=== PATIENT | female | born 1940 | race Caucasian/White ===

== ENCOUNTER 2021-05-21 21:02 | Inpatient (IN) | payer MEDICARE ==
[~2021-05-21] VITALS: Ht 165.1 cm; Wt 83.6 kg
[2021-05-21] MEDS ORDERED: SODIUM CHLORIDE 0.9% 1000ML 1,000 ML IV ONE (21:15)
[2021-05-21 21:32] LABS: BASOPHILS # (AUTO) 0.1 (0.0-0.1); BASOPHILS % 0.9 % (0.0-1.0); EOSINOPHILS # (AUTO) 0.3 (0.0-0.4); EOSINOPHILS % 3.1 % (0.0-6.0); HEMOGLOBIN 10.9 g/dL (12.0-16.0); LYMPHOCYTES # (AUTO) 0.9 (1.0-3.2); LYMPHOCYTES % 11.3 % (18.0-39.1); MEAN CORPUSCULAR HEMOGLOBIN 29.3 pg (28-32); MEAN CORPUSCULAR VOLUME 88.7 fL (81-99); MONOCYTES % 11.7 % (4.4-11.3); NEUTROPHILS # (AUTO) 5.9 (2.1-6.9); NEUTROPHILS % 72.5 % (38.7-80.0); PLATELET COUNT 392 x10e3/uL (140-360); RED BLOOD COUNT 3.72 x10e6/uL (3.6-5.1); RED CELL DISTRIBUTION WIDTH 12.9 % (11.7-14.4)
[2021-05-21 21:49] LABS: AMYLASE 55 U/L (25-125); LIPASE 51 U/L (8-78)
[2021-05-21 21:50] LABS: ALBUMIN 3.8 g/dL (3.5-5.0); ALBUMIN/GLOBULIN RATIO 1.6 (0.8-2.0); ANION GAP 16.9 mmol/L (8-16); CALCIUM 9.5 mg/dL (8.4-10.2); CREATININE, SERUM 0.82 mg/dL (0.57-1.11)
[2021-05-21 21:52] LABS: POTASSIUM 2.9 mmol/L (3.5-5.1)
[2021-05-21] MEDS ORDERED: SODIUM CHLORIDE 0.9% 50ML 50 ML ONE (22:08)
[2021-05-21] MEDS ORDERED: IOPAMIDOL 370 MG/ML 200 ML INFUS..BTL INJ ONE (22:08)
[2021-05-21] MEDS ORDERED: Morphine 2mg Syringe 2 MG/ML SYR IV ONE (22:30)
[2021-05-21 22:47] LABS: CLARITY,URINE CLEAR (CLEAR); COLOR,URINE YELLOW (YELLOW); KETONES,URINE NEGATIVE (NEGATIVE); LEUKOCYTE ESTERASE ,URINE NEGATIVE (NEGATIVE); NITRITE,URINE NEGATIVE (NEGATIVE); PROTEIN,URINE DIPSTICK NEGATIVE (NEGATIVE); URINE UROBILINOGEN 0.2 mg/dL (0.2 - 1)
[2021-05-21 22:51] LABS: BACTERIA,URINE FEW /HPF; EPITHELIAL CELLS,URINE FEW /LPF; RBC,URINE 0-5 /HPF (0-5); WBC,URINE (MAN) 0-5 /HPF (0-5)
[2021-05-22] VITALS (10 sets, daily range): BP systolic 135–157; BP diastolic 52–68
[2021-05-22] MEDS: ONDANSETRON HCL INJ 2MG/ML 2ML 2 MG/ML VIAL IV PRN ×3 (00:21→21:38)
[2021-05-22] MEDS: KCL 20MEQ/.9 SOD CHL 1,000 ML IV SCH ×4 (00:25→23:33)
[2021-05-22] MEDS: Morphine 2mg Syringe 2 MG/ML SYR IV PRN ×3 (02:36→21:38)
[2021-05-22] MEDS ORDERED: ACETAMINOPHEN 325 MG TAB PO PRN (07:15)
[2021-05-22 08:10] LABS: BASOPHILS # (AUTO) 0.1 (0.0-0.1); BASOPHILS % 1.4 % (0.0-1.0); EOSINOPHILS # (AUTO) 0.3 (0.0-0.4); EOSINOPHILS % 5.3 % (0.0-6.0); HEMATOCRIT 30.9 % (34.2-44.1); LYMPHOCYTES # (AUTO) 0.8 (1.0-3.2); LYMPHOCYTES % 15.3 % (18.0-39.1); MEAN CORPUSCULAR HEMOGLOBIN 29.7 pg (28-32); MEAN CORPUSCULAR HGB CONC 32.4 g/dL (31-35); MONOCYTES # (AUTO) 0.7 (0.2-0.8); MONOCYTES % 14.3 % (4.4-11.3); NEUTROPHILS # (AUTO) 3.2 (2.1-6.9); NEUTROPHILS % 63.1 % (38.7-80.0); PLATELET COUNT 320 x10e3/uL (140-360); RED BLOOD COUNT 3.37 x10e6/uL (3.6-5.1)
[2021-05-22 08:13] LABS: MEAN CORPUSCULAR VOLUME 91.7 fL (81-99)
[2021-05-22 08:45] LABS: ALBUMIN 3.2 g/dL (3.5-5.0); ALBUMIN/GLOBULIN RATIO 1.2 (0.8-2.0); ANION GAP 14.1 mmol/L (8-16); CALCIUM 8.4 mg/dL (8.4-10.2); CREATININE, SERUM 0.7 mg/dL (0.57-1.11); POTASSIUM 3.1 mmol/L (3.5-5.1)
[2021-05-22] MEDS: METRONIDAZOLE 500MG/NS 100ML 100 ML IV SCH ×3 (09:17→21:37)
[2021-05-22] MEDS ORDERED: SIMVASTATIN40 MG PO (14:29)
[2021-05-22] MEDS: ENOXAPARIN SOD INJ 40 MG/0.4 ML SYR SC SCH (16:46)
[2021-05-23] VITALS (7 sets, daily range): BP systolic 138–176; BP diastolic 57–67
[2021-05-23] MEDS ORDERED: METHOCARBAMOL500 MG PO (01:17)
[2021-05-23] MEDS ORDERED: AMLODIPINE BESYL5 MG PO (01:17)
[2021-05-23] MEDS ORDERED: LEVOTHYROXINE50 MCG PO (01:17)
[2021-05-23] MEDS ORDERED: CELEXA20 MG PO (01:17)
[2021-05-23] MEDS ORDERED: OMEPRAZOLE40 MG PO (01:17)
[2021-05-23] MEDS ORDERED: SIMVASTATIN40 MG PO (01:17)
[2021-05-23] MEDS ORDERED: METOPROLOL TART25 MG PO (01:17)
[2021-05-23] MEDS ORDERED: ESTRADIOL1 MG PO (01:17)
[2021-05-23] MEDS ORDERED: HYDROCHLOROTH12.5 MG PO (01:17)
[2021-05-23] MEDS ORDERED: ASPIRIN81 MG PO (01:17)
[2021-05-23] MEDS: METRONIDAZOLE 500MG/NS 100ML 100 ML IV SCH ×3 (05:05→21:51)
[2021-05-23] MEDS: ONDANSETRON HCL INJ 2MG/ML 2ML 2 MG/ML VIAL IV PRN (07:43)
[2021-05-23] MEDS: Morphine 2mg Syringe 2 MG/ML SYR IV PRN ×2 (07:43→20:26)
[2021-05-23] MEDS: KCL 20MEQ/.9 SOD CHL 1,000 ML IV SCH ×2 (07:43→16:07)
[2021-05-23 08:18] LABS: BASOPHILS # (AUTO) 0.1 (0.0-0.1); BASOPHILS % 1.6 % (0.0-1.0); EOSINOPHILS # (AUTO) 0.4 (0.0-0.4); EOSINOPHILS % 8.8 % (0.0-6.0); HEMATOCRIT 33.8 % (34.2-44.1); HEMOGLOBIN 10.2 g/dL (12.0-16.0); LYMPHOCYTES # (AUTO) 0.7 (1.0-3.2); LYMPHOCYTES % 13.1 % (18.0-39.1); MEAN CORPUSCULAR HEMOGLOBIN 29.4 pg (28-32); MEAN CORPUSCULAR HGB CONC 30.2 g/dL (31-35); MEAN CORPUSCULAR VOLUME 97.4 fL (81-99); MONOCYTES # (AUTO) 0.5 (0.2-0.8); MONOCYTES % 10.8 % (4.4-11.3); NEUTROPHILS # (AUTO) 3.2 (2.1-6.9); NEUTROPHILS % 65.1 % (38.7-80.0); PLATELET COUNT 311 x10e3/uL (140-360); RED BLOOD COUNT 3.47 x10e6/uL (3.6-5.1); RED CELL DISTRIBUTION WIDTH 13.5 % (11.7-14.4)
[2021-05-23 08:34] LABS: ANION GAP 12.8 mmol/L (8-16); BLOOD UREA NITROGEN < 5 mg/dL (7-26); CALCIUM 8.3 mg/dL (8.4-10.2); CARBON DIOXIDE 22 mmol/L (22-29); CHLORIDE 104 mmol/L (98-107); CREATININE, SERUM 0.62 mg/dL (0.57-1.11); EST GLOMERULAR FILTRATION RATE 92 ML/MIN (60-); GLUCOSE 94 mg/dL (74-118); POTASSIUM 3.8 mmol/L (3.5-5.1); SODIUM 135 mmol/L (136-145)
[2021-05-23 08:41] LABS: BUN/CREATININE RATIO 8 (6-25)
[2021-05-23] MEDS: METOPROLOL TARTRATE 25 MG TAB PO SCH ×2 (11:53→16:07)
[2021-05-23] MEDS: AMLODIPINE BESYLATE 5 MG TAB PO SCH (11:54)
[2021-05-23] MEDS: PROMETHAZINE 12.5MG/ NACL 0.9% 12.5 MG/50 ML BAG IV PRN ×2 (11:55→22:31)
[2021-05-23] MEDS: ENOXAPARIN SOD INJ 40 MG/0.4 ML SYR SC SCH (16:07)
[2021-05-24] VITALS (7 sets, daily range): BP systolic 129–164; BP diastolic 55–70
[2021-05-24] MEDS: KCL 20MEQ/.9 SOD CHL 1,000 ML IV SCH ×3 (03:00→15:30)
[2021-05-24] MEDS: ONDANSETRON HCL INJ 2MG/ML 2ML 2 MG/ML VIAL IV PRN ×3 (03:06→21:19)
[2021-05-24] MEDS: LEVOTHYROXINE SODIUM 25 MCG TABLET PO SCH (06:25)
[2021-05-24] MEDS: METRONIDAZOLE 500MG/NS 100ML 100 ML IV SCH ×3 (06:25→22:12)
[2021-05-24] MEDS: PROMETHAZINE 12.5MG/ NACL 0.9% 12.5 MG/50 ML BAG IV PRN (07:24)
[2021-05-24] MEDS: METOPROLOL TARTRATE 25 MG TAB PO SCH ×2 (09:00→18:04)
[2021-05-24] MEDS: AMLODIPINE BESYLATE 5 MG TAB PO SCH (09:00)
[2021-05-24] MEDS ORDERED: PROPOFOL IV EMULSION 10 MG/ML 20 ML VIAL ONE (12:45)
[2021-05-24] MEDS ORDERED: LIDOCAINE HCL 2% LOCAL INJ 5 ML SDV VIAL INJ ONE (12:45)
[2021-05-24] MEDS ORDERED: FENTANYL CITRATE/PF 100MCG/2 ML INJ ONE (13:11)
[2021-05-24] MEDS: Morphine 2mg Syringe 2 MG/ML SYR IV PRN (15:47)
[2021-05-24] MEDS: ENOXAPARIN SOD INJ 40 MG/0.4 ML SYR SC SCH (18:04)
[2021-05-25] VITALS (8 sets, daily range): BP systolic 147–175; BP diastolic 64–81
[2021-05-25] MEDS: KCL 20MEQ/.9 SOD CHL 1,000 ML IV SCH ×2 (00:29→12:40)
[2021-05-25] MEDS: ONDANSETRON HCL INJ 2MG/ML 2ML 2 MG/ML VIAL IV PRN ×2 (05:36→21:23)
[2021-05-25] MEDS: METRONIDAZOLE 500MG/NS 100ML 100 ML IV SCH ×3 (06:00→22:00)
[2021-05-25] MEDS: LEVOTHYROXINE SODIUM 25 MCG TABLET PO SCH (06:00)
[2021-05-25] MEDS ORDERED: SODIUM CHLORIDE 0.9% 250ML 250 ML ONE (07:43)
[2021-05-25] MEDS ORDERED: ONDANSETRON HCL 4 MG ORAL DISINTEGRATING TAB PO SCH (08:00)
[2021-05-25 08:19] LABS: BASOPHILS # (AUTO) 0.1 (0.0-0.1); BASOPHILS % 1.2 % (0.0-1.0); EOSINOPHILS # (AUTO) 0.5 (0.0-0.4); EOSINOPHILS % 7.8 % (0.0-6.0); HEMATOCRIT 32.8 % (34.2-44.1); HEMOGLOBIN 10.3 g/dL (12.0-16.0); LYMPHOCYTES # (AUTO) 0.7 (1.0-3.2); LYMPHOCYTES % 10.1 % (18.0-39.1); MEAN CORPUSCULAR HEMOGLOBIN 29.4 pg (28-32); MEAN CORPUSCULAR HGB CONC 31.4 g/dL (31-35); MEAN CORPUSCULAR VOLUME 93.7 fL (81-99); MONOCYTES # (AUTO) 0.5 (0.2-0.8); MONOCYTES % 8.4 % (4.4-11.3); NEUTROPHILS # (AUTO) 4.6 (2.1-6.9); NEUTROPHILS % 72.2 % (38.7-80.0); PLATELET COUNT 307 x10e3/uL (140-360); RED CELL DISTRIBUTION WIDTH 13.5 % (11.7-14.4)
[2021-05-25 08:37] LABS: ANION GAP 13.6 mmol/L (8-16); BLOOD UREA NITROGEN < 5 mg/dL (7-26); CALCIUM 8.8 mg/dL (8.4-10.2); CARBON DIOXIDE 23 mmol/L (22-29); CHLORIDE 104 mmol/L (98-107); CREATININE, SERUM 0.64 mg/dL (0.57-1.11); EST GLOMERULAR FILTRATION RATE 89 ML/MIN (60-); GLUCOSE 93 mg/dL (74-118); POTASSIUM 4.6 mmol/L (3.5-5.1); SODIUM 136 mmol/L (136-145)
[2021-05-25] MEDS: METOPROLOL TARTRATE 25 MG TAB PO SCH ×2 (08:37→16:30)
[2021-05-25] MEDS: AMLODIPINE BESYLATE 5 MG TAB PO SCH (08:37)
[2021-05-25 08:53] LABS: BUN/CREATININE RATIO 8 (6-25)
[2021-05-25 10:17] LABS: MAGNESIUM 1.9 MG/DL (1.3-2.1); PHOSPHORUS 2.6 MG/DL (2.3-4.7)
[2021-05-25] MEDS: ONDANSETRON HCL 4 MG ORAL DISINTEGRATING TAB PO SCH ×2 (11:26→15:30)
[2021-05-25] MEDS: CALCIUM CARBONATE 500 MG CHEWABLE TABS PO SCH ×2 (12:21→22:00)
[2021-05-25] MEDS: PROMETHAZINE 12.5MG/ NACL 0.9% 12.5 MG/50 ML BAG IV PRN (12:40)
[2021-05-25] MEDS: ENOXAPARIN SOD INJ 40 MG/0.4 ML SYR SC SCH (15:30)
[2021-05-25] MEDS: Morphine 2mg Syringe 2 MG/ML SYR IV PRN ×2 (17:20→23:30)
[2021-05-26] VITALS: BP 155/78
[2021-05-26] MEDS: KCL 20MEQ/.9 SOD CHL 1,000 ML IV SCH (00:11)
[2021-05-26 04:00] VITALS: BP 170/69
[2021-05-26] MEDS: ONDANSETRON HCL INJ 2MG/ML 2ML 2 MG/ML VIAL IV PRN (05:10)
[2021-05-26] MEDS: Morphine 2mg Syringe 2 MG/ML SYR IV PRN (05:40)
[2021-05-26] MEDS: METRONIDAZOLE 500MG/NS 100ML 100 ML IV SCH (06:03)
[2021-05-26] MEDS: CALCIUM CARBONATE 500 MG CHEWABLE TABS PO SCH (06:03)
[2021-05-26] MEDS: LEVOTHYROXINE SODIUM 25 MCG TABLET PO SCH (06:03)
[2021-05-26] MEDS: ONDANSETRON HCL 4 MG ORAL DISINTEGRATING TAB PO SCH (07:30)
[2021-05-26] MEDS ORDERED: Calcium Carbonate 500MG Chew PO (07:36)
[2021-05-26] MEDS ORDERED: ONDANSETRON ODT4 MG PO (07:36)
[2021-05-26] MEDS ORDERED: SENNA LAX8.6 MG PO (07:36)
[2021-05-26] MEDS ORDERED: PROBIOTIC & AC1 EACH PO (07:36)
[2021-05-26] MEDS ORDERED: METRONIDAZOLE250 MG PO (07:36)
[2021-05-26] MEDS ORDERED: PANTOPRAZOLE SO40 MG PO (07:36)
[2021-05-26] MEDS ORDERED: METOPROLOL TART50 MG PO (07:36)
[2021-05-26 08:16] VITALS: BP 152/56
[2021-05-26 08:37] VITALS: BP 152/56
[2021-05-26] MEDS: AMLODIPINE BESYLATE 5 MG TAB PO SCH (08:57)
[2021-05-26] MEDS ORDERED: METOPROLOL TARTRATE 50 MG TAB PO SCH (09:00)
== END 2021-05-26 10:24 | disposition home or self-care (01) | DRG 392 ==
LOC: ER 21:25 → ERHOLD 23:20 → MED/SURG3 05-22 00:58 → OBSVTOIN 05-23 09:19
PROVIDERS: ADMIT Internal Medicine; ATTEND Internal Medicine
PROC: 0DB78ZX Excision of Stomach, Pylorus, Via Natural or Artificial Opening Endoscopic, Diagnostic (ICD-10-PCS; 2021-05-24)
PROC: 0DB68ZX Excision of Stomach, Via Natural or Artificial Opening Endoscopic, Diagnostic (ICD-10-PCS; 2021-05-24)
PROC: 0DB38ZX Excision of Lower Esophagus, Via Natural or Artificial Opening Endoscopic, Diagnostic (ICD-10-PCS; principal; 2021-05-24 11:00)
DX: A09 Infectious gastroenteritis and colitis, unspecified (principal); E87.1 Hypo-osmolality and hyponatremia; E87.6 Hypokalemia; I10 Essential (primary) hypertension; Z90.49 Acquired absence of other specified parts of digestive tract; E89.0 Postprocedural hypothyroidism; K22.2 Esophageal obstruction; K44.9 Diaphragmatic hernia without obstruction or gangrene; K29.50 Unspecified chronic gastritis without bleeding; Z88.5 Allergy status to narcotic agent; Z88.0 Allergy status to penicillin; Z88.2 Allergy status to sulfonamides; Z96.652 Presence of left artificial knee joint; Z20.822 Contact with and (suspected) exposure to COVID-19
CPT/HCPCS: 36415; 43239; 74177; 80048; 80053; 81001; 82150; 82550; 82553; 83690; 83735; 84100; 84484; 85025; 88305; 88312; 88342; 93005; 94799; 96360; 96361; 97139; 99251; 99284; G0378; J1650; J2001; J2270; J2405; J2550; J3010; J7030; J7050; Q0162; Q9967; U0002

== ENCOUNTER 2021-06-30 12:04 | Inpatient (IN) | payer MEDICARE, OTHER ==
[2021-06-30] VITALS (7 sets, daily range): BP systolic 129–144; BP diastolic 59–64
[~2021-06-30] VITALS: Ht 160 cm; Wt 77.1 kg
[~2021-06-30 12:04] MED LIST: AMLODIPINE BESYL5 MG PO; ASPIRIN81 MG PO; CELEXA20 MG PO; Calcium Carbonate 500MG Chew PO; ESTRADIOL1 MG PO; HYDROCHLOROTH12.5 MG PO; LEVOTHYROXINE50 MCG PO; METHOCARBAMOL500 MG PO; METOPROLOL TART25 MG PO; METOPROLOL TART50 MG PO; METRONIDAZOLE250 MG PO; OMEPRAZOLE40 MG PO; ONDANSETRON ODT4 MG PO; PANTOPRAZOLE SO40 MG PO; PROBIOTIC & AC1 EACH PO; SENNA LAX8.6 MG PO; SIMVASTATIN40 MG PO
[2021-06-30] MEDS ORDERED: METHYLPREDNISOLONE SOD SUCC 125 MG/2ML VIAL IV NR (12:30)
[2021-06-30] MEDS ORDERED: ALBUTEROL/IPRATROPIUM 3 ML NEB NEB ONE (12:30)
[2021-06-30 12:48] LABS: BASOPHILS # (AUTO) 0.1 (0.0-0.1); BASOPHILS % 0.9 % (0.0-1.0); EOSINOPHILS # (AUTO) 0.1 (0.0-0.4); EOSINOPHILS % 1.4 % (0.0-6.0); HEMATOCRIT 31.8 % (34.2-44.1); HEMOGLOBIN 10.4 g/dL (12.0-16.0); LYMPHOCYTES # (AUTO) 0.6 (1.0-3.2); LYMPHOCYTES % 7.3 % (18.0-39.1); MEAN CORPUSCULAR HEMOGLOBIN 29.5 pg (28-32); MEAN CORPUSCULAR HGB CONC 32.7 g/dL (31-35); MEAN CORPUSCULAR VOLUME 90.3 fL (81-99); MONOCYTES # (AUTO) 0.4 (0.2-0.8); MONOCYTES % 5.5 % (4.4-11.3); NEUTROPHILS # (AUTO) 6.4 (2.1-6.9); NEUTROPHILS % 84.5 % (38.7-80.0); PLATELET COUNT 402 x10e3/uL (140-360); RED BLOOD COUNT 3.52 x10e6/uL (3.6-5.1); RED CELL DISTRIBUTION WIDTH 14.8 % (11.7-14.4)
[2021-06-30] MEDS: ALBUTEROL SULFATE HFA 8GM INHALATION AEROSOL INH PRN (12:49)
[2021-06-30 12:54] LABS: INR 1.16; PROTHROMBIN TIME 15.8 seconds (11.9-14.5)
[2021-06-30 12:55] LABS: PARTIAL THROMBOPLASTIN TIME 25.2 seconds (23.8-35.5)
[2021-06-30 13:06] LABS: ALBUMIN 3.8 g/dL (3.5-5.0); ALBUMIN/GLOBULIN RATIO 1.2 (0.8-2.0); CALCIUM 8.8 mg/dL (8.4-10.2); CREATININE, SERUM 0.76 mg/dL (0.57-1.11); MAGNESIUM 2.1 MG/DL (1.3-2.1)
[2021-06-30 13:12] LABS: CREATINE KINASE MB 1.6 ng/mL (0-5.0)
[2021-06-30 13:18] LABS: B-TYPE NATRIURETIC PEPTIDE2 121.2 pg/mL (0-100)
[2021-06-30] MEDS ORDERED: FUROSEMIDE INJ 10 MG/ML 2 ML VIAL IV NR (13:30)
[2021-06-30] MEDS: LEVOFLOXACIN 750MG/D5W 150ML 150 ML IV SCH (14:17)
[2021-06-30] MEDS ORDERED: ONDANSETRON HCL INJ 2MG/ML 2ML 2 MG/ML VIAL IV PRN ×2 (15:15→20:00)
[2021-06-30] MEDS: NITROGLYCERIN 2% OINT 1 GM PKT TOP SCH ×2 (15:33→17:51)
[2021-06-30] MEDS ORDERED: ULTRAM50 MG PO (18:46)
[2021-06-30] MEDS ORDERED: ZESTRIL40 MG PO (18:46)
[2021-06-30] MEDS ORDERED: HYDROCHLOROTHIA25 MG (18:47)
[2021-06-30] MEDS ORDERED: ONDANSETRON ODT4 MG PO (18:51)
[2021-06-30] MEDS ORDERED: ACETAMINOPHEN 325 MG TAB PO PRN (20:00)
[2021-06-30] MEDS ORDERED: METOPROLOL TARTRATE INJ 1 MG/ML VIAL IV PRN (20:00)
[2021-06-30] MEDS ORDERED: POLYETHYLENE GLYCOL 3350 17 GM PACK PO PRN (20:00)
[2021-06-30] MEDS: FUROSEMIDE INJ 10 MG/ML 4 ML VIAL IV SCH (20:52)
[2021-06-30] MEDS: SIMVASTATIN 40 MG TAB PO SCH (20:53)
[2021-06-30] MEDS: DOCUSATE SODIUM 100 MG CAP PO SCH (20:53)
[2021-06-30] MEDS: TEMAZEPAM 7.5 MG CAP PO PRN (22:26)
[2021-07-01] VITALS (10 sets, daily range): BP systolic 113–136; BP diastolic 55–64
[2021-07-01] MEDS ORDERED: ONDANSETRON HCL 4 MG ORAL DISINTEGRATING TAB PO SCH
[2021-07-01] MEDS: TRAMADOL HCL 50 MG TAB PO SCH ×4 (00:01→18:00)
[2021-07-01] MEDS: NITROGLYCERIN 2% OINT 1 GM PKT TOP SCH ×4 (00:20→18:00)
[2021-07-01 05:32] LABS: BASOPHILS % 0.1 % (0.0-1.0); HEMATOCRIT 27.3 % (34.2-44.1); HEMOGLOBIN 8.7 g/dL (12.0-16.0); LYMPHOCYTES # (AUTO) 0.4 (1.0-3.2); MEAN CORPUSCULAR HEMOGLOBIN 28.6 pg (28-32); MEAN CORPUSCULAR HGB CONC 31.9 g/dL (31-35); MEAN CORPUSCULAR VOLUME 89.8 fL (81-99); MONOCYTES # (AUTO) 0.4 (0.2-0.8); MONOCYTES % 3.9 % (4.4-11.3); NEUTROPHILS # (AUTO) 8.2 (2.1-6.9); NEUTROPHILS % 91.7 % (38.7-80.0); PLATELET COUNT 254 x10e3/uL (140-360); RED BLOOD COUNT 3.04 x10e6/uL (3.6-5.1); RED CELL DISTRIBUTION WIDTH 14.7 % (11.7-14.4)
[2021-07-01 05:58] LABS: ALBUMIN 3.3 g/dL (3.5-5.0); ALBUMIN/GLOBULIN RATIO 1.3 (0.8-2.0); ANION GAP 11.8 mmol/L (8-16); CALCIUM 8.6 mg/dL (8.4-10.2); CHOL/HDL RATIO 4.2 (3.0-3.6); CREATININE, SERUM 0.84 mg/dL (0.57-1.11); POTASSIUM 3.8 mmol/L (3.5-5.1)
[2021-07-01 06:20] LABS: CREATINE KINASE MB 2.3 ng/mL (0-5.0)
[2021-07-01 06:34] LABS: MAGNESIUM 2.2 MG/DL (1.3-2.1); PHOSPHORUS 3.5 MG/DL (2.3-4.7)
[2021-07-01 06:55] LABS: THYROID STIMULATING HORMONE 0.639 uIU/mL (0.350-4.940)
[2021-07-01] MEDS ORDERED: LEVOTHYROXINE SODIUM 25 MCG TABLET PO SCH (07:30)
[2021-07-01] MEDS ORDERED: SODIUM CHLORIDE 0.9% 250ML 250 ML ONE (07:30)
[2021-07-01] MEDS: LEVOFLOXACIN 750MG/D5W 150ML 150 ML IV SCH (08:34)
[2021-07-01] MEDS: ASPIRIN 81 MG ENTERIC COATED PO SCH (08:34)
[2021-07-01] MEDS: CITALOPRAM HYDROBROMIDE 20 MG TAB PO SCH (08:35)
[2021-07-01] MEDS: SENNOSIDES 8.6 MG TAB PO SCH ×2 (08:36→16:02)
[2021-07-01] MEDS: PANTOPRAZOLE SOD 40 MG TABEC PO SCH (08:37)
[2021-07-01] MEDS: AMLODIPINE BESYLATE 5 MG TAB PO SCH (08:37)
[2021-07-01] MEDS: DOCUSATE SODIUM 100 MG CAP PO SCH ×2 (08:37→16:02)
[2021-07-01] MEDS: ESTRADIOL 1 MG TAB PO SCH (08:37)
[2021-07-01] MEDS: FUROSEMIDE INJ 10 MG/ML 4 ML VIAL IV SCH ×2 (08:38→20:42)
[2021-07-01] MEDS ORDERED: PANTOPRAZOLE SOD 40 MG TABEC PO SCH (09:00)
[2021-07-01] MEDS ORDERED: HYDROCHLOROTHIAZIDE 25 MG TAB PO SCH (09:00)
[2021-07-01] MEDS ORDERED: LISINOPRIL 20 MG TAB PO SCH ×2 (09:00)
[2021-07-01 15:31] LABS: CREATINE KINASE MB 3.5 ng/mL (0-5.0)
[2021-07-01] MEDS ORDERED: ENOXAPARIN SOD INJ 40 MG/0.4 ML SYR SC SCH (17:00)
[2021-07-01] MEDS: NYSTATIN 15 GM POWDER UD BTL TOP SCH ×2 (17:45→21:00)
[2021-07-01] MEDS: SIMVASTATIN 40 MG TAB PO SCH (20:42)
[2021-07-01] MEDS: TEMAZEPAM 7.5 MG CAP PO PRN (22:21)
[2021-07-02] VITALS (7 sets, daily range): BP systolic 109–144; BP diastolic 56–97
[2021-07-02] MEDS ORDERED: METOPROLOL TARTRATE INJ 1 MG/ML VIAL IV ONE
[2021-07-02] MEDS: NITROGLYCERIN 2% OINT 1 GM PKT TOP SCH ×4 (00:07→17:48)
[2021-07-02] MEDS: TRAMADOL HCL 50 MG TAB PO SCH ×4 (00:07→17:47)
[2021-07-02] MEDS ORDERED: AMIODARONE HCL 150 MG/100 ML BAG IV ONE (01:45)
[2021-07-02] MEDS ORDERED: AMIODARONE 900MG 900 MG in Premix Bag 1 BAG IV SCH (01:45)
[2021-07-02] MEDS ORDERED: AMIODARONE 900MG 500 ML IV ONE (01:52)
[2021-07-02] MEDS ORDERED: SODIUM CHLORIDE 0.9% 250ML 250 ML ONE (01:59)
[2021-07-02] MEDS ORDERED: SODIUM CHLORIDE 0.9% 1000ML 250 ML IV ONE (02:00)
[2021-07-02] MEDS: ALBUTEROL SULFATE HFA 8GM INHALATION AEROSOL INH PRN (07:25)
[2021-07-02] MEDS: PANTOPRAZOLE SOD 40 MG TABEC PO SCH (09:00)
[2021-07-02] MEDS: SENNOSIDES 8.6 MG TAB PO SCH ×2 (09:00→21:03)
[2021-07-02] MEDS: FUROSEMIDE INJ 10 MG/ML 4 ML VIAL IV SCH ×2 (09:00→21:03)
[2021-07-02] MEDS: ESTRADIOL 1 MG TAB PO SCH (09:00)
[2021-07-02] MEDS: CITALOPRAM HYDROBROMIDE 20 MG TAB PO SCH (09:00)
[2021-07-02] MEDS: NYSTATIN 15 GM POWDER UD BTL TOP SCH ×3 (09:00→21:08)
[2021-07-02] MEDS: LEVOFLOXACIN 750MG/D5W 150ML 150 ML IV SCH (09:00)
[2021-07-02] MEDS: ASPIRIN 81 MG ENTERIC COATED PO SCH (09:00)
[2021-07-02] MEDS: DOCUSATE SODIUM 100 MG CAP PO SCH ×2 (09:00→21:03)
[2021-07-02] MEDS: AMLODIPINE BESYLATE 5 MG TAB PO SCH (09:00)
[2021-07-02] MEDS ORDERED: LISINOPRIL 20 MG TAB PO SCH (09:45)
[2021-07-02] MEDS: METOPROLOL SUCCINATE 25 MG TAB XL PO SCH (09:45)
[2021-07-02] MEDS: ENOXAPARIN INJ 80 MG/0.8 ML SYR SC SCH ×2 (11:30→21:08)
[2021-07-02] MEDS: SIMVASTATIN 40 MG TAB PO SCH (21:04)
[2021-07-02] MEDS: TEMAZEPAM 15 MG CAP PO PRN (21:05)
[2021-07-03] VITALS (7 sets, daily range): BP systolic 109–137; BP diastolic 58–93
[2021-07-03] MEDS: TRAMADOL HCL 50 MG TAB PO SCH ×4 (00:20→17:24)
[2021-07-03 05:43] LABS: BASOPHILS # (AUTO) 0.1 (0.0-0.1); BASOPHILS % 1.1 % (0.0-1.0); EOSINOPHILS # (AUTO) 0.4 (0.0-0.4); EOSINOPHILS % 5.8 % (0.0-6.0); HEMATOCRIT 32.2 % (34.2-44.1); HEMOGLOBIN 10.3 g/dL (12.0-16.0); LYMPHOCYTES # (AUTO) 0.8 (1.0-3.2); LYMPHOCYTES % 11.7 % (18.0-39.1); MEAN CORPUSCULAR HEMOGLOBIN 28.6 pg (28-32); MEAN CORPUSCULAR VOLUME 89.4 fL (81-99); MONOCYTES # (AUTO) 0.7 (0.2-0.8); MONOCYTES % 9.8 % (4.4-11.3); NEUTROPHILS % 70.7 % (38.7-80.0); PLATELET COUNT 292 x10e3/uL (140-360); RED CELL DISTRIBUTION WIDTH 14.7 % (11.7-14.4)
[2021-07-03] MEDS: LEVOTHYROXINE SODIUM 25 MCG TABLET PO SCH (06:00)
[2021-07-03 06:05] LABS: ALBUMIN 3.2 g/dL (3.5-5.0); ALBUMIN/GLOBULIN RATIO 1.2 (0.8-2.0); ANION GAP 12.1 mmol/L (8-16); CALCIUM 8.9 mg/dL (8.4-10.2); CREATININE, SERUM 0.78 mg/dL (0.57-1.11); MAGNESIUM 1.8 MG/DL (1.3-2.1); PHOSPHORUS 3.7 MG/DL (2.3-4.7); POTASSIUM 3.1 mmol/L (3.5-5.1)
[2021-07-03] MEDS: NITROGLYCERIN 2% OINT 1 GM PKT TOP SCH ×4 (06:27→17:25)
[2021-07-03] MEDS: FUROSEMIDE INJ 10 MG/ML 4 ML VIAL IV SCH ×2 (08:34→21:20)
[2021-07-03] MEDS: DOCUSATE SODIUM 100 MG CAP PO SCH ×2 (08:35→21:20)
[2021-07-03] MEDS: ASPIRIN 81 MG ENTERIC COATED PO SCH (08:35)
[2021-07-03] MEDS: CITALOPRAM HYDROBROMIDE 20 MG TAB PO SCH (08:35)
[2021-07-03] MEDS: ESTRADIOL 1 MG TAB PO SCH (08:36)
[2021-07-03] MEDS: AMLODIPINE BESYLATE 5 MG TAB PO SCH (08:37)
[2021-07-03] MEDS: LISINOPRIL 10 MG TAB PO SCH (08:37)
[2021-07-03] MEDS: LEVOFLOXACIN 250 MG TAB PO SCH (08:37)
[2021-07-03] MEDS: METOPROLOL SUCCINATE 25 MG TAB XL PO SCH (08:38)
[2021-07-03] MEDS: PANTOPRAZOLE SOD 40 MG TABEC PO SCH (08:38)
[2021-07-03] MEDS: SENNOSIDES 8.6 MG TAB PO SCH ×2 (08:38→21:20)
[2021-07-03] MEDS: NYSTATIN 15 GM POWDER UD BTL TOP SCH ×3 (08:39→21:20)
[2021-07-03] MEDS ORDERED: AMIODARONE HCL 200 MG TAB PO SCH (09:00)
[2021-07-03] MEDS ORDERED: LISINOPRIL 20 MG TAB PO SCH (09:00)
[2021-07-03] MEDS: ENOXAPARIN INJ 80 MG/0.8 ML SYR SC SCH ×2 (09:20→21:20)
[2021-07-03] MEDS ORDERED: POTASSIUM CHLORIDE 20 MEQ TAB CR PO ONE (10:30)
[2021-07-03] MEDS: AMIODARONE HCL 200 MG TAB PO SCH (21:20)
[2021-07-03] MEDS: SIMVASTATIN 40 MG TAB PO SCH (21:20)
[2021-07-03] MEDS: TEMAZEPAM 15 MG CAP PO PRN (21:32)
[2021-07-04] VITALS (9 sets, daily range): BP systolic 93–130; BP diastolic 56–103
[2021-07-04] MEDS: TRAMADOL HCL 50 MG TAB PO SCH ×4 (00:19→17:26)
[2021-07-04] MEDS: NITROGLYCERIN 2% OINT 1 GM PKT TOP SCH ×4 (00:20→16:28)
[2021-07-04] MEDS: LEVOTHYROXINE SODIUM 25 MCG TABLET PO SCH (06:24)
[2021-07-04] MEDS: AMIODARONE HCL 200 MG TAB PO SCH ×2 (08:17→21:00)
[2021-07-04] MEDS: CITALOPRAM HYDROBROMIDE 20 MG TAB PO SCH (08:17)
[2021-07-04] MEDS: PANTOPRAZOLE SOD 40 MG TABEC PO SCH (08:17)
[2021-07-04] MEDS: ESTRADIOL 1 MG TAB PO SCH (08:17)
[2021-07-04] MEDS: LEVOFLOXACIN 250 MG TAB PO SCH (08:17)
[2021-07-04] MEDS: DOCUSATE SODIUM 100 MG CAP PO SCH ×2 (08:17→21:43)
[2021-07-04] MEDS: SENNOSIDES 8.6 MG TAB PO SCH ×2 (08:17→21:43)
[2021-07-04] MEDS: FUROSEMIDE INJ 10 MG/ML 4 ML VIAL IV SCH ×2 (08:17→21:47)
[2021-07-04] MEDS: ASPIRIN 81 MG ENTERIC COATED PO SCH (08:17)
[2021-07-04] MEDS: LISINOPRIL 10 MG TAB PO SCH (08:18)
[2021-07-04] MEDS: AMLODIPINE BESYLATE 5 MG TAB PO SCH (08:18)
[2021-07-04] MEDS: METOPROLOL SUCCINATE 25 MG TAB XL PO SCH (08:19)
[2021-07-04] MEDS ORDERED: LISINOPRIL10 MG PO (08:29)
[2021-07-04] MEDS ORDERED: POTASSIUM CHLO10 ME1 PO (08:29)
[2021-07-04] MEDS ORDERED: SENOKOT8.6 MG PO (08:29)
[2021-07-04] MEDS ORDERED: COLACE100 MG PO (08:29)
[2021-07-04] MEDS ORDERED: FUROSEMIDE40 MG PO (08:29)
[2021-07-04] MEDS ORDERED: TOPROL XL25 MG PO (08:29)
[2021-07-04] MEDS ORDERED: AMIODARONE HCL200 MG PO (08:29)
[2021-07-04] MEDS: NYSTATIN 15 GM POWDER UD BTL TOP SCH ×3 (08:32→21:00)
[2021-07-04] MEDS ORDERED: ELIQUIS2.5 MG PO (08:34)
[2021-07-04] MEDS: ENOXAPARIN INJ 80 MG/0.8 ML SYR SC SCH (09:30)
[2021-07-04] MEDS: APIXABAN 5 MG TABLET PO SCH (16:43)
[2021-07-04] MEDS: SIMVASTATIN 40 MG TAB PO SCH (21:43)
[2021-07-05 05:27] VITALS: BP 140/63
[2021-07-05] MEDS: LEVOTHYROXINE SODIUM 25 MCG TABLET PO SCH (06:46)
[2021-07-05] MEDS: TRAMADOL HCL 50 MG TAB PO SCH ×3 (06:46→12:40)
[2021-07-05] MEDS: NITROGLYCERIN 2% OINT 1 GM PKT TOP SCH ×3 (06:46→11:25)
[2021-07-05 06:52] LABS: ANION GAP 11.4 mmol/L (8-16); CALCIUM 9.1 mg/dL (8.4-10.2); CREATININE, SERUM 0.88 mg/dL (0.57-1.11); POTASSIUM 3.4 mmol/L (3.5-5.1)
[2021-07-05 06:54] LABS: MAGNESIUM 1.8 MG/DL (1.3-2.1); PHOSPHORUS 3.8 MG/DL (2.3-4.7)
[2021-07-05 07:28] VITALS: BP 133/61
[2021-07-05 08:00] VITALS: BP 133/61
[2021-07-05] MEDS ORDERED: METOPROLOL SUCCINATE 50 MG TAB XL PO SCH (09:00)
[2021-07-05] MEDS: NYSTATIN 15 GM POWDER UD BTL TOP SCH ×2 (09:27→14:04)
[2021-07-05 09:31] VITALS: BP 133/61
[2021-07-05] MEDS: DOCUSATE SODIUM 100 MG CAP PO SCH (09:34)
[2021-07-05] MEDS: SENNOSIDES 8.6 MG TAB PO SCH (09:34)
[2021-07-05] MEDS: ASPIRIN 81 MG ENTERIC COATED PO SCH (09:35)
[2021-07-05] MEDS: AMLODIPINE BESYLATE 5 MG TAB PO SCH (09:35)
[2021-07-05] MEDS: LEVOFLOXACIN 250 MG TAB PO SCH (09:35)
[2021-07-05] MEDS: AMIODARONE HCL 200 MG TAB PO SCH (09:36)
[2021-07-05] MEDS: APIXABAN 5 MG TABLET PO SCH (09:37)
[2021-07-05] MEDS: FUROSEMIDE INJ 10 MG/ML 4 ML VIAL IV SCH (09:37)
[2021-07-05] MEDS: CITALOPRAM HYDROBROMIDE 20 MG TAB PO SCH (09:37)
[2021-07-05] MEDS: ESTRADIOL 1 MG TAB PO SCH (09:38)
[2021-07-05] MEDS: LISINOPRIL 10 MG TAB PO SCH (09:38)
[2021-07-05] MEDS: PANTOPRAZOLE SOD 40 MG TABEC PO SCH (09:38)
[2021-07-05] MEDS ORDERED: POTASSIUM CHLORIDE 10MEQ EA PO ONE ×2 (10:00→13:05)
[2021-07-05 11:04] VITALS: BP 123/58
[2021-07-05] MEDS ORDERED: ONDANSETRON HCL 4 MG ORAL DISINTEGRATING TAB PO PRN (13:15)
[2021-07-05] MEDS ORDERED: FUROSEMIDE 40 MG TAB PO SCH (21:00)
== END 2021-07-05 14:27 | disposition home or self-care (01) | DRG 291 ==
LOC: ER 12:10 → ERHOLD 14:07 → MED/SURG 16:01
PROVIDERS: ADMIT Internal Medicine; ATTEND Internal Medicine
DX: I11.0 Hypertensive heart disease with heart failure (principal); I50.33 Acute on chronic diastolic (congestive) heart failure; J96.01 Acute respiratory failure with hypoxia; E78.5 Hyperlipidemia, unspecified; E03.9 Hypothyroidism, unspecified; Z74.09 Other reduced mobility; D64.9 Anemia, unspecified; F41.9 Anxiety disorder, unspecified; D50.0 Iron deficiency anemia secondary to blood loss (chronic); J22 Unspecified acute lower respiratory infection; R60.0 Localized edema; I25.10 Atherosclerotic heart disease of native coronary artery without angina pectoris; Z88.0 Allergy status to penicillin; Z88.2 Allergy status to sulfonamides; G47.00 Insomnia, unspecified; I48.91 Unspecified atrial fibrillation
CPT/HCPCS: 36415; 71045; 80048; 80053; 80061; 82550; 82553; 83036; 83605; 83735; 83880; 84100; 84132; 84443; 84484; 85025; 85610; 85730; 87040; 93005; 93306; 93970; 94799; 97139; 99284; J1650; J1940; J2930; J7050; U0002